=== PATIENT | male | born 2000 | race Caucasian/White ===

== ENCOUNTER 2024-11-05 14:34 | Emergency (ER) | payer MEDICAID ==
[~2024-11-05] VITALS: Ht 167.6 cm; Wt 63.6 kg
[2024-11-05 14:46] VITALS: BP 126/75; PULSE 94; RESP 12; O2SAT 98
[2024-11-05] MEDS: TETanus/Pertussis (Acell)/Diphther VAC/PF (Tdap-Adult) 0.5ml syringe IMVAC ONE (15:15)
[2024-11-05] MEDS: LIDOcaine 1% W/epiNEPHrine 1:100,000 20ml vial IJ ONE (15:18)
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
[2024-11-05 16:08] VITALS: TEMP 98.5
== END 2024-11-05 16:10 ==
LOC: ER 14:35
DX: S01.01XA Laceration without foreign body of scalp, initial encounter (principal); W22.8XXA Striking against or struck by other objects, initial encounter; Y93.89 Activity, other specified; Y92.89 Other specified places as the place of occurrence of the external cause; Y99.8 Other external cause status
CPT/HCPCS: 12002; 90471; 90715; 99283; J7030; A6449

== ENCOUNTER 2024-11-15 14:16 | Emergency (ER) | payer MEDICAID ==
[~2024-11-15] VITALS: Ht 167.6 cm; Wt 59.5 kg
[2024-11-15 14:29] VITALS: BP 140/77; PULSE 107; RESP 18; O2SAT 97
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
[2024-11-15 15:35] VITALS: TEMP 97.6
== END 2024-11-15 15:36 | disposition home or self-care (01) ==
LOC: ER 14:16
DX: S01.01XD Laceration without foreign body of scalp, subsequent encounter (principal); W22.8XXD Striking against or struck by other objects, subsequent encounter
CPT/HCPCS: 99281